=== PATIENT | female | born 1940 | race Two or more races ===

== ENCOUNTER 2022-04-29 10:45 | Emergency (ER) | payer BC, OTHER ==
[~2022-04-29] VITALS: Ht 147.3 cm; Wt 60.0 kg
[2022-04-29 11:25] LABS: Basophils # (auto) 0 10 ^3/uL (0-0.2); Basophils % (auto) 0.8 % (0.0-2.0); Eosinophils # (auto) 0.1 10 ^3/uL (0-0.8); Eosinophils % (auto) 1.1 % (0.0-7.0); Hematocrit 42.7 % (36.0-46.0); Hemoglobin 13.8 g/dL (12.2-16.2); Lymphocytes # (auto) 2.2 10 ^3/uL (0.4-5.4); Lymphocytes % (auto) 35.4 % (10.0-50.0); Mean Corpuscular Hemoglobin 29.3 pg (28.0-32.0); Mean Corpuscular Hgb Conc. 32.3 g/dL (32.0-36.0); Mean Corpuscular Volume 90.9 fL (80.0-100.0); Monocytes # (auto) 0.5 10 ^3/uL (0-1.3); Monocytes % (auto) 8.1 % (0.0-12.0); Neutrophils # (auto) 3.4 10 ^3/uL (1.6-8.6); Neutrophils % (auto) 54.6 % (37.0-80.0); White Blood Cell 6.3 10^3/uL (4.4-10.8)
[2022-04-29 11:42] LABS: INR 1.06 (0.9-1.15); Partial Thromboplastin Time 27.1 sec (24.6-33.4)
[2022-04-29 11:52] LABS: Albumin 3.6 g/dL (3.4-5.0); Calcium 9.2 mg/dL (8.5-10.1)
[2022-04-29 11:56] LABS: BUN/Creatinine Ratio 7.7; Bilirubin, Total 0.5 mg/dL (0.2-1.0); Total Protein 6.8 g/dL (6.4-8.2)
[2022-04-29] MEDS ORDERED: PANTOPRAZOLE 40 MG/10 ML VIAL INJ IV ONE (13:30)
[2022-04-29 14:20] LABS: Urine Bacteria NONE SEEN /hpf (None Seen); Urine Blood Negative /uL (Negative); Urine Specific Gravity 1.003 (1.001-1.035); Urine WBC 1 /hpf (0 - 5)
[2022-04-29 15:00] VITALS: BP 129/54
[2022-04-29] MEDS ORDERED: PANT40TA2 PO (15:23)
[2022-04-29] MEDS ORDERED: PANTOPRAZOLE 40 MG TAB PO SCH (22:00)
== END 2022-04-29 15:48 | disposition home or self-care (01) ==
LOC: ER 10:45
DX: K29.70 Gastritis, unspecified, without bleeding (principal); I10 Essential (primary) hypertension; Z20.822 Contact with and (suspected) exposure to COVID-19
CPT/HCPCS: 36415; 71045; 74176; 80053; 81001; 83880; 84484; 85025; 85610; 85730; 87426; 96374; 99285; C9113

== ENCOUNTER 2022-05-17 07:19 | Emergency (ER) | payer OTHER ==
[~2022-05-17] VITALS: Ht 147.3 cm; Wt 55.0 kg
[~2022-05-17 07:19] MED LIST: PANT40TA2 PO
[2022-05-17] MEDS ORDERED: DONNATAL 5ml ORAL Elix (BELLADONNA ALK-PHENOBARB) PO ONE (07:45)
[2022-05-17] MEDS ORDERED: LIDOCAINE VISCOUS 2% 15ML UD PO ONE (07:45)
[2022-05-17] MEDS ORDERED: ALUM & MAG HYDROX-SIMETH LIQ(MAALOX) 30 ML PO ONE (07:45)
[2022-05-17] MEDS ORDERED: PANT40TA2 PO (07:57)
[2022-05-17 08:00] LABS: Basophils # (auto) 0 10 ^3/uL (0-0.2); Basophils % (auto) 0.5 % (0.0-2.0); Eosinophils # (auto) 0.1 10 ^3/uL (0-0.8); Eosinophils % (auto) 1.8 % (0.0-7.0); Hematocrit 41.5 % (36.0-46.0); Hemoglobin 13.6 g/dL (12.2-16.2); Lymphocytes # (auto) 2.4 10 ^3/uL (0.4-5.4); Lymphocytes % (auto) 32.9 % (10.0-50.0); Mean Corpuscular Hemoglobin 29.6 pg (28.0-32.0); Mean Corpuscular Hgb Conc. 32.9 g/dL (32.0-36.0); Monocytes # (auto) 0.5 10 ^3/uL (0-1.3); Monocytes % (auto) 7.1 % (0.0-12.0); Neutrophils # (auto) 4.2 10 ^3/uL (1.6-8.6); Neutrophils % (auto) 57.7 % (37.0-80.0); Nucleated Red Blood Cells % 0.1 %; Red Cell Distribution Width 14.8 % (11.8-14.3); White Blood Cell 7.2 10^3/uL (4.4-10.8)
[2022-05-17 08:17] LABS: Albumin 3.6 g/dL (3.4-5.0); Potassium 4.1 mmol/L (3.5-5.1)
[2022-05-17 08:20] LABS: BUN/Creatinine Ratio 11.8; Bilirubin, Total 0.5 mg/dL (0.2-1.0); Total Protein 6.7 g/dL (6.4-8.2)
[2022-05-17 08:46] VITALS: BP 135/52
[2022-05-17 12:12] LABS: Urine Bacteria NONE SEEN /hpf (None Seen); Urine Blood Negative /uL (Negative); Urine Mucus FEW (None Seen); Urine Specific Gravity 1.015 (1.001-1.035); Urine WBC 2 /hpf (0 - 5)
== END 2022-05-17 11:33 | disposition home or self-care (01) ==
LOC: ER 07:19
DX: K29.70 Gastritis, unspecified, without bleeding (principal); I10 Essential (primary) hypertension; Z79.899 Other long term (current) drug therapy
CPT/HCPCS: 36415; 80053; 81001; 83690; 84484; 85025; 93005

== ENCOUNTER 2024-03-02 15:34 | Emergency (ER) | payer OTHER ==
[~2024-03-02] VITALS: Ht 149.9 cm; Wt 51.0 kg
[2024-03-02 16:08] LABS: Basophils # (auto) 0.1 10 ^3/uL (0-0.2); Basophils % (auto) 0.8 % (0.0-2.0); Eosinophils # (auto) 0.1 10 ^3/uL (0-0.8); Eosinophils % (auto) 1.2 % (0.0-7.0); Hematocrit 43.8 % (36.0-46.0); Hemoglobin 14.7 g/dL (12.2-16.2); Lymphocytes # (auto) 2.6 10 ^3/uL (0.4-5.4); Lymphocytes % (auto) 37.2 % (10.0-50.0); Mean Corpuscular Hemoglobin 31.9 pg (28.0-32.0); Mean Corpuscular Hgb Conc. 33.5 g/dL (32.0-36.0); Monocytes # (auto) 0.7 10 ^3/uL (0-1.3); Monocytes % (auto) 9.4 % (0.0-12.0); Neutrophils # (auto) 3.6 10 ^3/uL (1.6-8.6); Neutrophils % (auto) 51.4 % (37.0-80.0); Nucleated Red Blood Cells % 0.1 %; Red Blood Cells 4.61 10^6/uL (4.0-5.20); Red Cell Distribution Width 14.5 % (11.8-14.3); White Blood Cell 6.9 10^3/uL (4.4-10.8)
[2024-03-02 16:30] LABS: Alanine Aminotransferase 14 U/L (7-40); Albumin 4.3 g/dL (3.2-4.8); Alkaline Phosphatase 110 U/L (46-116); Anion Gap 8 (5-15); Aspartate Aminotransferase 16 U/L (13-40); BUN/Creatinine Ratio 12.2 (10.0-20.0); Bilirubin, Total 0.6 mg/dL (0.2-1.0); Blood Urea Nitrogen 12 mg/dL (9-23); Calcium 9.7 mg/dL (8.7-10.4); Carbon Dioxide 26 mmol/L (20-30); Chloride 106 mmol/L (98-107); Glucose 111 mg/dL (74-106); Potassium 4.4 mmol/L (3.5-5.1); Sodium 140 mmol/L (136-145); Total Protein 6.6 g/dL (5.7-8.2)
[2024-03-02 18:24] VITALS: BP 15/67; PULSE 61; RESP 14; TEMP 97.9; O2SAT 97
== END 2024-03-02 18:28 | disposition home or self-care (01) ==
LOC: ER 15:34
DX: I10 Essential (primary) hypertension (principal); Z00.00 Encounter for general adult medical examination without abnormal findings
CPT/HCPCS: 36415; 80053; 84484; 85025; 93005

== ENCOUNTER 2024-03-27 07:45 | Inpatient (IN) | payer OTHER ==
[~2024-03-27] VITALS: Ht 147.3 cm; Wt 51.3 kg
[2024-03-27 09:01] LABS: Basophils # (auto) 0 10 ^3/uL (0-0.2); Basophils % (auto) 0.5 % (0.0-2.0); Eosinophils # (auto) 0.1 10 ^3/uL (0-0.8); Eosinophils % (auto) 1.1 % (0.0-7.0); Hematocrit 43.5 % (36.0-46.0); Hemoglobin 14.8 g/dL (12.2-16.2); Lymphocytes # (auto) 2.5 10 ^3/uL (0.4-5.4); Mean Corpuscular Hemoglobin 32.5 pg (28.0-32.0); Mean Corpuscular Hgb Conc. 34.1 g/dL (32.0-36.0); Mean Corpuscular Volume 95.2 fL (80.0-100.0); Monocytes # (auto) 0.7 10 ^3/uL (0-1.3); Monocytes % (auto) 7.8 % (0.0-12.0); Neutrophils # (auto) 5.1 10 ^3/uL (1.6-8.6); Neutrophils % (auto) 60.6 % (37.0-80.0); Platelet Count (auto) 245 10^3/uL (140-450); Red Blood Cells 4.57 10^6/uL (4.0-5.20); Red Cell Distribution Width 14.6 % (11.8-14.3); White Blood Cell 8.4 10^3/uL (4.4-10.8)
[2024-03-27 09:15] LABS: Alanine Aminotransferase 16 U/L (7-40); Albumin 4.3 g/dL (3.2-4.8); Alkaline Phosphatase 111 U/L (46-116); Anion Gap 7 (5-15); Aspartate Aminotransferase 18 U/L (13-40); BUN/Creatinine Ratio 9.8 (10.0-20.0); Blood Alcohol < 3.0 mg/dL (<10); Blood Urea Nitrogen 11 mg/dL (9-23); Calcium 10.1 mg/dL (8.7-10.4); Carbon Dioxide 27 mmol/L (20-30); Chloride 107 mmol/L (98-107); Glucose 110 mg/dL (74-106); Potassium 4.3 mmol/L (3.5-5.1); Sodium 141 mmol/L (136-145)
[2024-03-27 09:16] LABS: Bilirubin, Total 0.8 mg/dL (0.2-1.0); Total Protein 6.9 g/dL (5.7-8.2)
[2024-03-27 09:53] VITALS: PULSE 57; RESP 16; O2SAT 97
[2024-03-27 10:25] VITALS: PULSE 52; RESP 15; O2SAT 97
[2024-03-27] MEDS: IOHEXOL 350 MG/ML 100ML IJ ONE (15:30)
[2024-03-27 15:47] LABS: Urine Bacteria FEW /hpf (None Seen); Urine Blood Negative /uL (Negative); Urine Clarity Clear (Clear); Urine Color Light-Yellow (Yellow); Urine Protein, UAD Negative (Negative); Urine Urobilinogen Normal (Negative); Urine WBC 11 /hpf (0 - 5)
[2024-03-27] MEDS ORDERED: NITROGLYCERIN 0.4 MG SL TAB SL PRN (16:30)
[2024-03-27] MEDS ORDERED: ONDANSETRON HCL 4 MG/2 ML VIAL IV PRN (16:30)
[2024-03-27] MEDS ORDERED: MORPHINE SULFATE INJ 2 MG/ml SYRG IV PRN ×2 (16:30)
[2024-03-27] MEDS ORDERED: HYDROcodone-ACET 5/325MG TAB PO PRN (16:30)
[2024-03-27] MEDS ORDERED: ACETAMINOPHEN 325 MG TAB PO PRN (16:30)
[2024-03-27] MEDS: SODIUM CHLORIDE 0.9% 1,000 ML IV SCH (17:36)
[2024-03-27 19:30] VITALS: PULSE 68; RESP 18; O2SAT 94
[2024-03-27] MEDS ORDERED: hydrALAZINE HCL 20 MG/ML VL IV PRN (21:45)
[2024-03-27] MEDS: diphenhdrAMINE HCL 50 MG/1 ML VL IV ONE (21:50)
[2024-03-28] MEDS ORDERED: ATOR20TA50 PO (01:15)
[2024-03-28] MEDS ORDERED: LEVO50TA7 PO (01:15)
[2024-03-28] MEDS ORDERED: ASPI-543 PO (01:15)
[2024-03-28] MEDS ORDERED: GABA-1250 PO (01:15)
[2024-03-28 01:20] VITALS: BP 147/66; PULSE 69; RESP 17; TEMP 98.1; O2SAT 94
[2024-03-28 05:00] VITALS: BP 154/55; PULSE 60; RESP 17; TEMP 97.3; O2SAT 97
[2024-03-28 08:00] VITALS: PULSE 60; RESP 17; O2SAT 97
[2024-03-28 09:00] VITALS: BP 168/70; PULSE 65; RESP 17; TEMP 97.9; O2SAT 96
[2024-03-28] MEDS ORDERED: ENOXAPARIN SOD 40 MG/0.4 ML SYRINGE SC SCH (10:00)
[2024-03-28] MEDS: ENOXAPARIN SOD 30 MG/0.3 ML SYRINGE SC SCH (10:01)
[2024-03-28 10:10] VITALS: BP 153/73; PULSE 66
[2024-03-28 13:00] VITALS: BP 149/79; PULSE 71; RESP 18; TEMP 98.5; O2SAT 96
[2024-03-28] MEDS ORDERED: CEPH500C PO (13:41)
[2024-03-28] MEDS ORDERED: TRAZ-227 PO (13:53)
[2024-03-28] MEDS ORDERED: traZODone HCL 50 MG TAB PO SCH (22:00)
== END 2024-03-28 17:27 | disposition home or self-care (01) | DRG 57 ==
LOC: ER 07:45 → TELE 16:32 → TELE-EAST 03-28 00:35
PROVIDERS: ADMIT Internal Medicine; ATTEND Internal Medicine
DX: G30.9 Alzheimer's disease, unspecified (principal); N39.0 Urinary tract infection, site not specified; F02.80 Dementia in other diseases classified elsewhere, unspecified severity, without behavioral disturbance, psychotic disturbance, mood disturbance, and anxiety; R26.81 Unsteadiness on feet; R47.1 Dysarthria and anarthria; E03.9 Hypothyroidism, unspecified; F51.04 Psychophysiologic insomnia; G62.9 Polyneuropathy, unspecified; K21.9 Gastro-esophageal reflux disease without esophagitis; I10 Essential (primary) hypertension; Z86.73 Personal history of transient ischemic attack (TIA), and cerebral infarction without residual deficits
CPT/HCPCS: 36415; 70450; 70496; 70551; 80053; 80320; 81001; 85025; 93005; 96361; 96374; 97163; G0378

== ENCOUNTER 2024-05-30 02:35 | Inpatient (IN) | payer OTHER ==
[~2024-05-30] VITALS: Ht 147.3 cm; Wt 50.6 kg
[2024-05-30] VITALS (7 sets, daily range): BP systolic 112–139; BP diastolic 56–77; PULSE 51–78; RESP 18–21; TEMP 98–98.6; O2SAT 97–99
[~2024-05-30 02:35] MED LIST changes: +ASPI-543 PO; +ATOR20TA50 PO; +CEPH500C PO; +GABA-1250 PO; +LEVO50TA7 PO; +TRAZ-227 PO
[2024-05-30] MEDS ORDERED: ACETAMINOPHEN 325 MG TAB PO PRN (05:45)
[2024-05-30] MEDS ORDERED: ONDANSETRON HCL 4 MG/2 ML VIAL IV PRN (05:45)
[2024-05-30] MEDS: SODIUM CHLORIDE 0.9% 1,000 ML IV SCH (05:45)
--- NOTE | 2024-05-30 06:22 | DVHHP2 ---
Admitting Diagnosis: bradycardia, syncope, ABDI, UTI History of Present Illness History Source: Patient Exam Limitations: No limitations HPI Mrs. Agnieszka Amador is an 83 yo female with a history of hypertension, and thyroid disease who is a direct admit from [facility] as per O insurance request. Patient presented to [facility] ED with a chief complaint of syncope episode while sitting down in a chair at [employer] yesterday. Patient was found to be in sinus bradycardia rate 49-55 with blood pressure of 92/54. Patient is alert and oriented x4 with no lateralizing symptoms. Patient WBC 10.56, H&H 14.4/42.7, Platelets 237, Na 135, K 3.3, BUN 28/1.21, Lactic acid 3.2, Urinalysis small leukocyte esterase with WBC UA 11/20. Patient reports associated nausea. Patient denies chest pain, dyspnea, palpitations, dizziness, syncope, fevers chills, c spine, thoracic or lumbar tenderness. Patient reports she has had a cough for a couple days with congestion. Patient reports she was seen here recently and had a normal MRI brain. Patient admitted for further evaluation. Home Meds Active Scripts Trazodone Hcl (Trazodone Hcl) 50 Mg Tab, 25 MG PO HSPRN PRN, #14 TAB Prov:GALEN ESTRADA MD 03/28/24 Cephalexin Monohydrate (Cephalexin) 500 Mg Cap, 1 CAP PO TID for 3 Days, #9 CAP Prov:GALEN ESTRADA MD 03/28/24 Pantoprazole Sodium Sesquihydr (Protonix) 40 Mg Tab, 40 MG PO DAILY for 10 Days, #10 TAB Prov:ABIGAIL MENDEZ MD 05/17/22 Pantoprazole Sodium Sesquihydr (Protonix) 40 Mg Tab, 40 MG PO DAILY for 10 Days, #10 TAB Prov:ABIGAIL MENDEZ MD 04/29/22 Reported Medications Levothyroxine Sodium (Levothyroxine Sodium) 50 Mcg Tab, 50 MCG PO QAM for 30 Days, MCG 03/28/24 Atorvastatin Calcium (ATORVASTATIN CALCIUM) 20 Mg Tab, 1 TAB PO DAILY, #30 TAB 5 Refills 03/28/24 Gabapentin (Gabapentin) 300 Mg Cap, 300 MG PO BID for 30 Days, MG 03/28/24 Aspirin (Aspir-Low) 81 Mg Tab, 81 MG PO DAILY for 30 Days, MG 03/28/24 Past Medical History Cardiac: HTN Pulmonary: No pertinent Hx Central Nervous System: No pertinent Hx GI: No pertinent Hx Hemotology/Oncology: No pertinent Hx Hepatobiliary: No pertinent Hx Psychiatric: No pertinent Hx Musculoskeletal: No pertinent Hx Rheumotologic: No pertinent Hx Infectious Disease: No peritnent Hx ENT: No pertinent Hx Renal/: No pertinent Hx Endocrine: Other (thyroid disease) Dermatology: No pertinent Hx Patient Family History: FH: cancer G8 BROTHER Hypertension 19 CHILD 19 CHILD 19 CHILD Smoker: No Hx (Negative) Alocohol: None Drugs: None Lives with: With family Domestic Violence: Neg Review of Systems Constitutional: No symptom reported Ears, Nose, & Throat: No symptom reported Eyes: No symptom reported Pulmonary/Respiratory: No symptom reported Cardiovascular: No symptom reported Gastrointestinal: No symptom reported Genitourinary: No symptom reported Musculoskeletal: No symptom reported Skin: No symptom reported Psychiatric: No symptom reported Endocrine: No symptom reported Hemotologic/Lymphatic: No symptom reported H&P Exam General Appeara: Well developed, Well nourished, Normal Appearance Head Exam: Normal inspection Neck Exam: Normal inspection, Non-tender, Normal alignment Eye Exam: bilateral eye Normal inspection, bilateral eye PERRL, bilateral eye EOMI Ear Exam: bilateral ear Auricle normal, bilateral ear Canal normal Nasal Exam: Normal inspection Mouth: Normal Inspection Pulmonary/Respiratory: Normal inspection, Normal breath sounds, Chest non- tender, Lungs clear Cardiovascular/Chest: Normal inspection, Regular rate, Normal Rhythm Peripheral Pulses: 2+ dorsalis pedis (R), 2+ dorsalis pedis (L), 2+ Radial (R), 2+ Radial (L) Abdominal Exam: Normal bowel sounds, Soft Rectal Exam: Deferred Back Exam: Normal inspection Tendon/ Neuro: Normal sensation, Normal motor function [employer] Exam: Normal hearing, Normal speech, PERRL Motor/Sensory: Normal sensory function, Normal motor function Neuro/Mental St: Alert, Oriented Appearance: Appropriate appearance, Appropriate insight Eye contact/ Speech: Cooperative, Good eye contact, Normal speech Thoughts/Psych: Normal thought pattern Skin Exam: Normal inspection, Normal color, Warm/dry Assessment/Plan Problem List: (1) Symptomatic sinus bradycardia (2) Acute kidney injury (3) Urinary tract infection (4) Lactic acidosis (5) Dizziness (6) Syncope Plan 83 yo female with known history of hypertension, thyroid disease presents with status post syncopal episode with dizziness. Patient was found to have 1. Bradycardia 2. acute kidney injury 3. urinary tract infection 4. lactic acidosis 5. Dizziness 6. syncope episode Patient admitted to telemetry unit Cardiology consultation, 2D echocardiogram Renal ultrasound, IV fluids NS @ 75 ml/hr TSH, T4 levels, lactic level, urine culture IV antibiotic Ceftriaxone Fall Precautions Discussed all above with patient who verbalizes agreement and understanding of care plan. All questions were answered. Plan discussed with: Patient, Other Code Visit Code Visit Total Time (mins): 45 Additional Comments Additional Comments Additional Comments Patient is seen and evaluated. Patient's chart is reviewed and discussed with the nurse practitioner. I agree with the nurse practitioner's evaluation, documentation, assessment and care plan as outlined. JAMILA MAYORGA May 30, 2024 06:22 LILLI CLARK MD May 30, 2024 14:27
[2024-05-30 07:35] LABS: Basophils # (auto) 0 10 ^3/uL (0-0.2); Basophils % (auto) 0.2 % (0.0-2.0); Eosinophils # (auto) 0 10 ^3/uL (0-0.8); Eosinophils % (auto) 0.2 % (0.0-7.0); Hematocrit 41.4 % (36.0-46.0); Hemoglobin 13.8 g/dL (12.2-16.2); Lymphocytes # (auto) 1.7 10 ^3/uL (0.4-5.4); Lymphocytes % (auto) 20.1 % (10.0-50.0); Mean Corpuscular Hemoglobin 31.2 pg (28.0-32.0); Mean Corpuscular Hgb Conc. 33.4 g/dL (32.0-36.0); Mean Corpuscular Volume 93.3 fL (80.0-100.0); Monocytes # (auto) 0.5 10 ^3/uL (0-1.3); Monocytes % (auto) 6.3 % (0.0-12.0); Neutrophils # (auto) 6.3 10 ^3/uL (1.6-8.6); Neutrophils % (auto) 73.2 % (37.0-80.0); Platelet Count (auto) 232 10^3/uL (140-450); Red Blood Cells 4.44 10^6/uL (4.0-5.20); Red Cell Distribution Width 14.3 % (11.8-14.3); White Blood Cell 8.6 10^3/uL (4.4-10.8)
[2024-05-30 07:38] LABS: Anion Gap 9 (5-15); Carbon Dioxide 23 mmol/L (20-31); Chloride 106 mmol/L (98-107); Potassium 3.7 mmol/L (3.5-5.1); Sodium 138 mmol/L (136-145)
[2024-05-30 07:39] LABS: Calcium 9.5 mg/dL (8.7-10.4)
[2024-05-30 07:44] LABS: BUN/Creatinine Ratio 16.1 (10.0-20.0); Blood Urea Nitrogen 14 mg/dL (9-23); Glucose 111 mg/dL (74-106)
--- NOTE | 2024-05-30 08:05 | DVH ---
RENAL ULTRASOUND CLINICAL HISTORY: mari TECHNIQUE: Multiple ultrasound images of the kidneys and bladder were obtained. COMPARISON: None FINDINGS: The right kidney measures 9.5 cm in length. The left kidney measures 8.7 cm. The kidneys demonstrate appropriate echotexture without evidence of a discrete renal lesion, nephrolithiasis or hydronephrosi s. The bladder is contracted and poorly filled limiting evaluation. IMPRESSION: 1. Unremarkable sonographic appearance of the kidneys. 2. Limited evaluation of the contracted poorly filled bladder. HS:Y
[2024-05-30] MEDS: FAMOTIDINE 20 MG TAB PO SCH (09:07)
[2024-05-30] MEDS: cefTRIAXone 1GM/50ML D5W 50 ML IV SCH (09:07)
[2024-05-30 15:02] LABS: Urine Bacteria None Seen /hpf (None Seen)
[2024-05-30 15:10] LABS: Urine Blood Negative /uL (Negative); Urine Clarity Clear (Clear); Urine Color Light-Yellow (Yellow); Urine Protein, UAD Negative (Negative); Urine Specific Gravity 1.012 (1.001-1.035); Urine Urobilinogen Normal (Negative); Urine WBC 1 /hpf (0 - 5); Urine pH 6.5 (5.0-9.0)
--- NOTE | 2024-05-30 16:00 | DVHSR ---
APPROVED REPORT EXAM: LIMITED Two-dimensional and M-mode echocardiogram. Blood Pressure: 114/66 mmHg INDICATION Bradycardia RISK FACTORS Height: 4' 10", Weight: 122 DIMENSIONS LVDd3.8 (3.8-5.7cm)LA (2D)3.7 (1.9-4.0cm)Aortic Root2.8 (2.0-3.7cm) LVDs2.7 (2.5-4.0cm)LA (MM) (1.9-4.0cm)Aortic Cusp Exc1.4 (1.5-2.0cm) EF (%) 56.0 (55-70%)Rt. Atrium (1.9-4.0cm)Asc. Aorta cm IVSd0.9 (0.7-1.1cm)RV (D) (1.8-2.4cm) PWd0.8 (0.7-1.1cm) Mitral Valve MitralMitral Stenosis E wave0.90m/sMV Mean GR.mmHg A wave1.00m/sMV Peak GR.mmHg E/A ratio0.92D MVAcm2 Aortic Valve Aortic ValveAortic Stenosis V11.10m/Rony Mean GR.4mmHg V21.40m/Rony Peak GR.8mmHg LVOT Diameter2.0 (1.8-2.4cm)Doppler AVA2.47cm2 Tricuspid Valve TR Velocity2.20m/s [id number] Conclusion Technically difficult study. Difficult acoustic windows. Limited views. Apical views obtained for the most part. Sinus rhythm. Chamber dimension evaluation shows left atrial enlargement with mild concentric LVH. Valves appear to be structurally normal. Left ventricular function is preserved. EF of about 55% with normal RV function. Dopplers unremarkable. No pericardial effusion masses or vegetations.
--- NOTE | 2024-05-30 19:07 | DVHINCON2 ---
Date Seen: May 30, [address] Estrada. Reason for Consultation Syncope History of Present Illness A 71-year-old lady with a history of generalized body pain and numbness. Has had a syncopal event. She was in [employer] and was found by her daughter dazed and leaning back against the bench. In about a minute she became arousable. She regained consciousness but could not remember. Past medical history significant for mild dementia.Patient states that she felt warmth and things began to black out prior to her passing out. No loss of bladder or bowel Function. Past Medical History Hypertension. Dementia. Status post appendectomy and . No history of previous myocardial infarction. She is a . She has children and grandchildren. Family states that she has been progressively declining mentally. Past Surgical History History of appendectomy and . Family History: FH: cancer G8 BROTHER Hypertension 19 CHILD 19 CHILD 19 CHILD Allergies: Coded Allergies: NO KNOWN ALLERGIES (Unverified , 04/29/22) Home Meds Active Scripts Trazodone Hcl (Trazodone Hcl) 50 Mg Tab, 25 MG PO HSPRN PRN, #14 TAB Prov:GALEN ESTRADA MD 03/28/24 Cephalexin Monohydrate (Cephalexin) 500 Mg Cap, 1 CAP PO TID for 3 Days, #9 CAP Prov:GALEN ESTRADA MD 03/28/24 Pantoprazole Sodium Sesquihydr (Protonix) 40 Mg Tab, 40 MG PO DAILY for 10 Days, #10 TAB Prov:ABIGAIL MENDEZ MD 05/17/22 Pantoprazole Sodium Sesquihydr (Protonix) 40 Mg Tab, 40 MG PO DAILY for 10 Days, #10 TAB Prov:ABIGAIL MENDEZ MD 04/29/22 Reported Medications Levothyroxine Sodium (Levothyroxine Sodium) 50 Mcg Tab, 50 MCG PO QAM for 30 Days, MCG 03/28/24 Atorvastatin Calcium (ATORVASTATIN CALCIUM) 20 Mg Tab, 1 TAB PO DAILY, #30 TAB 5 Refills 03/28/24 Gabapentin (Gabapentin) 300 Mg Cap, 300 MG PO BID for 30 Days, MG 03/28/24 Aspirin (Aspir-Low) 81 Mg Tab, 81 MG PO DAILY for 30 Days, MG 03/28/24 Current Medications Current Medications Medications (Trade) Dose Ordered Sig/Nell Route PRN Reason Start Time Stop Time Status Last Admin Sodium Chloride 1,000 ml @ 75 mls/hr [id number] IV 05/30/24 05:45 05/30/24 06:45 Ondansetron HCl (Zofran) 4 mg Q6HPRN PRN IV NAUSEA / VOMITING 05/30/24 05:45 Ceftriaxone Sodium 50 ml @ 100 mls/hr DAILY IV 05/30/24 10:00 05/30/24 09:07 Acetaminophen (Tylenol Tablet) 650 mg Q6HPRN PRN PO TEMP GREATER THAN 100.4 05/30/24 05:45 Famotidine (Pepcid Tablet) 20 mg DAILY PO 05/30/24 10:00 05/30/24 09:07 Review of Systems No history of constitutional symptoms fevers chills or weight loss. Cardiac and respiratory as noted above. Neurologically as noted above. GI integumentary allergy immunology lymphatic endocrine psychiatrically otherwise negative with the exception of that noted above. Vital Signs Vital Signs Date Time Temp Pulse Resp B/P (MAP) Pulse Ox O2 Delivery O2 Flow Rate FiO2 05/30/24 17:00 98.2 70 19 113/59 (77) 97 98.2 05/30/24 08:00 Room Air* 0 21 Physical Exam Alert and oriented no acute distress at this time. HEENT examination is otherwise unremarkable. Orally well hydrated. Trachea central neck supple thyroid is not palpable with no jugular distention no bruits. Lungs are good air entry no rales or rhonchi. Heart exam reveals regular S1-S2 soft S4. abdominal examination is unremarkable. Extremities reveal adequate perfusion without clubbing cyanosis no edema. Neurologically intact. Integumentary is otherwise within normal limits. Labs/Diagnostic Data Labs Test 05/30/24 15:00 05/30/24 13:04 05/30/24 09:25 05/30/24 06:47 Range/Units Urine Color Light-yellow Yellow Urine Clarity Clear Clear Urine pH 6.5 5.0-9.0 Urine Specific [place] 1.012 1.001-1.035 Urine Protein Negative Negative Urine Ketones Negative Negative Urine Blood Negative Negative /uL Urine Nitrite Negative Negative Urine Bilirubin Negative Negative Urine Urobilinogen Normal Negative mg/dL Urine Leukocyte Esterase Negative Negative /uL Urine RBC 1 0 - 4 /hpf Urine WBC 1 0 - 5 /hpf Urine Squamous Epithelial Cells Few <5 /hpf Urine Bacteria None seen None Seen /hpf Urine Glucose Normal Normal mg/dL Troponin I High Sensitivity 6 </=34 ng/L Lactic Acid Level 1.5 0.4-2.0 mmol/L White Blood Count 8.6 4.4-10.8 10^3/uL Red Blood Count 4.44 4.0-5.20 10^6/uL Hemoglobin 13.8 12.2-16.2 g/dL Hematocrit 41.4 36.0-46.0 % Mean Corpuscular Volume 93.3 80.0-100.0 fL Mean Corpuscular Hemoglobin 31.2 28.0-32.0 pg Mean Corpuscular Hemoglobin Concent 33.4 32.0-36.0 g/dL Red Cell Distribution Width 14.3 11.8-14.3 % Platelet Count 232 140-450 10^3/uL Mean Platelet Volume 8.5 6.9-10.8 fL Neutrophils (%) (Auto) 73.2 37.0-80.0 % Lymphocytes (%) (Auto) 20.1 10.0-50.0 % Monocytes (%) (Auto) 6.3 0.0-12.0 % Eosinophils (%) (Auto) 0.2 0.0-7.0 % Basophils (%) (Auto) 0.2 0.0-2.0 % Neutrophils # (Auto) 6.3 1.6-8.6 10 ^3/uL Lymphocytes # (Auto) 1.7 0.4-5.4 10 ^3/uL Monocytes # (Auto) 0.5 0-1.3 10 ^3/uL Eosinophils # (Auto) 0 0-0.8 10 ^3/uL Basophils # (Auto) 0 0-0.2 10 ^3/uL Nucleated Red Blood Cells 0.0 % Sodium Level 138 136-145 mmol/L Potassium Level 3.7 3.5-5.1 mmol/L Chloride Level 106 98-107 mmol/L Carbon Dioxide Level 23 20-31 mmol/L Anion Gap 9 5-15 Blood Urea Nitrogen 14 9-23 mg/dL Creatinine 0.87 0.550-1.02 mg/dL Glomerular Filtration Rate Calc 66 >90 mL/min BUN/Creatinine Ratio 16.1 10.0-20.0 Serum Glucose 111 H 74-106 mg/dL Calcium Level 9.5 8.7-10.4 mg/dL Thyroid Stimulating Hormone (TSH) 0.47 L 0.55-4.78 uIU/mL Assessment Probable vasovagal event. Associated dementia. Plan/Recommendation Echocardiogram reviewed showing normal left ventricular function. We will rule out coronary artery disease. A stress test will be obtained we will monitor rhythm strips. Plan discussed with: Daughter Date of Service: May 30, 2024 Billing Provider: MICHELLE YUSUF Sr., MD Cardiology Common Codes: 84244-DPOEMMZ INP/OBS CARE (High) Cardiology Consultation Codes: 83088-[id number] CONSULT <60MIN MICHELLE YUSUF Sr., MD May 30, 2024 19:06
[2024-05-30] MEDS: ZOLPIDEM TARTRATE 5 MG TAB PO PRN (21:46)
[2024-05-31] VITALS (7 sets, daily range): BP systolic 116–157; BP diastolic 45–68; PULSE 60–73; RESP 16–20; TEMP 97.8–98.3; O2SAT 97–98
[2024-05-31] MEDS: ADENOSINE 43 MG in GIVE UN-DILUTED 0 ML IV ONE (11:54)
--- NOTE | 2024-05-31 12:09 | DVHPN2 ---
Progress Note - Dictate Date Seen: May 31, 2024 Medical Necessity Reason Pt with a Central, PICC or Fol: No Subjective Clinically stable. Ambulating well. Family is at bedside. Evaluated by Cardiology undergoing Cardiolite stress test. vital signs Vital Sign Date Time Temp Pulse Resp B/P (MAP) Pulse Ox O2 Delivery O2 Flow Rate FiO2 05/31/24 05:00 97.8 60 19 116/45 (68) 97 97.8 05/30/24 20:00 Room Air* 0 21 Total Intake and Output 05/30/24 05/30/24 05/31/24 15:00 23:00 07:00 Intake Total 50 ml 1425 ml 300 ml Balance 50 ml 1425 ml 300 ml medications Current Medications Medications Dose Ordered Sig/Nell Route Start Time Stop Time Status Last Admin Dose Admin Sodium Chloride 1,000 ml @ 75 mls/hr [id number] IV 05/30/24 05:45 05/30/24 06:45 75 MLS/HR Ondansetron HCl 4 mg Q6HPRN PRN IV 05/30/24 05:45 Ceftriaxone Sodium 50 ml @ 100 mls/hr DAILY IV 05/30/24 10:00 05/31/24 09:41 100 MLS/HR Acetaminophen 650 mg Q6HPRN PRN PO 05/30/24 05:45 Famotidine 20 mg DAILY PO 05/30/24 10:00 05/31/24 09:44 20 MG Zolpidem Tartrate 5 mg HSPRN PRN PO 05/30/24 19:15 05/30/24 21:46 5 MG objective Alert awake oriented x3. Family at bedside. Comfortable in bed. HEENT neck supple no JVD. Heart regular rate and rhythm S1 and S2. Lungs without rales wheezes. Abdomen soft nontender positive bowel sounds. Extremities no edema positive pulses. No focal neurological deficits. laboratory and microbiology Laboratory Tests 05/30/24 06:47 Test 05/30/24 06:47 Range/Units Serum Glucose 111 H 74-106 mg/dL Assessment/Plan Patient orthostatic vitals are normal. Proceed with Cardiolite stress test and if workup is normal then she can be discharged home. Discussed with them. Meantime continue present management. Problems(with codes): (1) Acute kidney injury (2) Dizziness Dietary Evaluation Review Comments: appropriate weight per height. appetite is stimulated as we discussed menu items on her cardiac diet. Monitor PO intake to meet 75% of her needs. Expected Outcomes/Goals: Maintain weight. Plan discussed with: Patient, Other LILLI CLARK MD May 31, 2024 12:09
[2024-05-31] MEDS ORDERED: DONE1TAB88 PO (15:21)
[2024-05-31] MEDS ORDERED: LISI-287 PO (15:21)
--- NOTE | 2024-05-31 15:49 | DVHSR ---
APPROVED REPORT Exam: Nuclear Stress Test BMI: 0 Stress Test Details HR Max Heart Rate (APMHR): 138.786807 bpm Target HR (85% APMHR): 117.607078 bpm BP ECG Stress ECG Conclusion Resting ECG shows normal sinus rhythm. No dynamic EKG changes was noted to suggest ischemia. Resting images shows near homogeneous uptake of radioactive tracer throughout the myocardium without evidence of myocardial infarction. Stress images shows near homogeneous uptake of radioactive tracer throughout the myocardium without e vidence of myocardial ischemia well-preserved left ventricular systolic function at 77%. Impression: Negative stress test for ischemia, low risk study. NM EXAM: Myocardial Perfusion REST/STRESS Imaging Protocol: Rest Tc-99m/Stress Tc-99m 1 day Resting Data Rest SPECT myocardial perfusion imaging was performed in supine position 60 minutes following the int ravenous injection of 10.3 mCi of Tc-99m Sestamibi. Time of rest injection: 1017 Time of rest imagin Administration Route: IV Administration Site: Right Arm Pharmacologic Stress Pharmacologic stress test was performed by injecting Adenosine mg IV push followed by the intravenou s injection of 25.9 mCi of Tc-99m Sestamibi. Time of stress injection: 1158 Time of stress imagin Administration Route: IV Administration Site: Right Arm Gated Stress SPECT was performed 60 minutes after stress injection. The images were gated to evaluate regional wall motion and calculate left ventricular ejection fracti on. Stress only was performed in the Supine position. Nuclear Conclusion ECG Findings: negative for ischemia Clinical Findings: negative for ischemia Nuclear Findings: negative for ischemia Exercise Capacity: not assessed Left Ventricular Function: normal Risk Study: low Resting ECG shows normal sinus rhythm. No dynamic EKG changes was noted to suggest ischemia. Resting images shows near homogeneous uptake of radioactive tracer throughout the myocardium without evidence of myocardial infarction. Stress images shows near homogeneous uptake of radioactive tracer throughout the myocardium without e vidence of myocardial ischemia well-preserved left ventricular systolic function at 77%. Impression: Negative stress test for ischemia, low risk study.
[2024-06-01 01:00] VITALS: BP 130/61; PULSE 68; RESP 20; TEMP 98; O2SAT 96
[2024-06-01 05:00] VITALS: BP 122/51; PULSE 63; RESP 18; TEMP 98.2; O2SAT 98; O2SAT 99
[2024-06-01 08:00] VITALS: PULSE 56; PULSE 77; RESP 18; O2SAT 97
[2024-06-01 08:30] VITALS: BP 156/72; PULSE 69; RESP 18; TEMP 97.9; O2SAT 100
--- NOTE | 2024-06-01 13:55 | DVHDS2 ---
Discharge Summary Date of Admission May 30, 2024 at 05:32 Date of Discharge: Jun 01, 2024 Labs/Diagnostic Data: Laboratory Results Test 05/30/24 18:46 05/30/24 15:00 05/30/24 09:25 05/30/24 06:47 Troponin I High Sensitivity 9 ng/L (</=34) Urine Color Light-yellow (Yellow) Urine Clarity Clear (Clear) Urine pH 6.5 (5.0-9.0) Urine Specific [place] 1.012 (1.001-1.035) Urine Protein Negative (Negative) Urine Ketones Negative (Negative) Urine Blood Negative /uL (Negative) Urine Nitrite Negative (Negative) Urine Bilirubin Negative (Negative) Urine Urobilinogen Normal mg/dL (Negative) Urine Leukocyte Esterase Negative /uL (Negative) Urine RBC 1 /hpf (0 - 4) Urine WBC 1 /hpf (0 - 5) Urine Squamous Epithelial Cells Few /hpf (<5) Urine Bacteria None seen /hpf (None Seen) Urine Glucose Normal mg/dL (Normal) Lactic Acid Level 1.5 mmol/L (0.4-2.0) White Blood Count 8.6 10^3/uL (4.4-10.8) Red Blood Count 4.44 10^6/uL (4.0-5.20) Hemoglobin 13.8 g/dL (12.2-16.2) Hematocrit 41.4 % (36.0-46.0) Mean Corpuscular Volume 93.3 fL (80.0-100.0) Mean Corpuscular Hemoglobin 31.2 pg (28.0-32.0) Mean Corpuscular Hemoglobin Concent 33.4 g/dL (32.0-36.0) Red Cell Distribution Width 14.3 % (11.8-14.3) Platelet Count 232 10^3/uL (140-450) Mean Platelet Volume 8.5 fL (6.9-10.8) Neutrophils (%) (Auto) 73.2 % (37.0-80.0) Lymphocytes (%) (Auto) 20.1 % (10.0-50.0) Monocytes (%) (Auto) 6.3 % (0.0-12.0) Eosinophils (%) (Auto) 0.2 % (0.0-7.0) Basophils (%) (Auto) 0.2 % (0.0-2.0) Neutrophils # (Auto) 6.3 10 ^3/uL (1.6-8.6) Lymphocytes # (Auto) 1.7 10 ^3/uL (0.4-5.4) Monocytes # (Auto) 0.5 10 ^3/uL (0-1.3) Eosinophils # (Auto) 0 10 ^3/uL (0-0.8) Basophils # (Auto) 0 10 ^3/uL (0-0.2) Nucleated Red Blood Cells 0.0 % Sodium Level 138 mmol/L (136-145) Potassium Level 3.7 mmol/L (3.5-5.1) Chloride Level 106 mmol/L (98-107) Carbon Dioxide Level 23 mmol/L (20-31) Anion Gap 9 (5-15) Blood Urea Nitrogen 14 mg/dL (9-23) Creatinine 0.87 mg/dL (0.550-1.02) Glomerular Filtration Rate Calc 66 mL/min (>90) BUN/Creatinine Ratio 16.1 (10.0-20.0) Serum Glucose 111 mg/dL (74-106) Calcium Level 9.5 mg/dL (8.7-10.4) Thyroid Stimulating Hormone (TSH) 0.47 uIU/mL (0.55-4.78) Thyroxine (T4) 9.8 ug/dL (4.5-12.0) Other Laboratory Tests 05/30/24 06:47 Final Diagnosis/Problems List near syncope Discharge Disposition: Home Discharge Instruct/Medications Diet: Consistent carbohydrate, Cardiac 2g Na,low cholest Activity: No Restrictions, As Tolerated Follow Up/Referral: with PCP 2 weeks for blood pressure check Medications: home medications Discharge Statement: "Patient was advised to return to the ER or call 911 if any headaches, dizziness, shortness of breath, chest pain, abdominal pain, bleeding, fevers, or worsening of medical condition. Patient was counseled about treatment plan, medications, possible side effects, patientverbalized understanding. All questions were answered to the best of my ability. This discharge took greater then 30 minutes in planning, reviewing documentation, counseling the patient, and discussing with other team members." ASSESSMENT ASSESSMENT Assessment near syncope LILLI CLARK MD Jun 01, 2024 13:55
== END 2024-06-01 12:37 | disposition home or self-care (01) | DRG 74 ==
LOC: TELE-WESTW 05:32
PROVIDERS: ADMIT Hospitalist; ATTEND Hospitalist
DX: G90.89 Other disorders of autonomic nervous system (principal); N17.9 Acute kidney failure, unspecified; E87.20 Acidosis, unspecified; N39.0 Urinary tract infection, site not specified; I10 Essential (primary) hypertension; R42 Dizziness and giddiness; F03.A0 Unspecified dementia, mild, without behavioral disturbance, psychotic disturbance, mood disturbance, and anxiety; Z82.49 Family history of ischemic heart disease and other diseases of the circulatory system; Z90.49 Acquired absence of other specified parts of digestive tract; R00.1 Bradycardia, unspecified
CPT/HCPCS: 36415; 76775; 78452; 80048; 81001; 83605; 84436; 84443; 84484; 85025; 93017; 93306; 97110; 97116; 97163; G0378; J0153

== ENCOUNTER 2024-11-08 11:44 | Emergency (ER) | payer MEDICARE, OTHER ==
[~2024-11-08] VITALS: Ht 154.9 cm; Wt 49.5 kg
[~2024-11-08 11:44] MED LIST changes: -CEPH500C PO; +DONE1TAB88 PO; +LISI-287 PO; -TRAZ-227 PO
--- NOTE | 2024-11-08 12:48 | ED.PDOC ---
History of Present Illness HPI Comments 84F BIBA w/ no prior Hx associated to the c/c of Syncope. Pt reports on pulling her weeds in her backyard and got hot so she started walking to her patio when she got dizzy and fainted, hitting her head on a brick. PMHx of CVA and HTN. Denies chills, fever, N//'V/D, SOB, CP or no other associated symptoms, m odifiers, recent injuries or sick contacts at this time. Chief Complaint: Syncope Time Seen by MD: 12:10 Primary Care Provider: FABY Reviewed Notes: Nurses Notes, Architect In Training Notes, Medications, Allergies Allergies: Coded Allergies: NO KNOWN ALLERGIES (Unverified , 04/29/22) Home Meds Active Scripts Cephalexin (KEFLEX CAPSULE) 250 Mg Cp, 1 CAP PO QID PRN for 7 Days, #28 CAP Prov:ABIGAIL MENDEZ MD 11/08/24 Pantoprazole Sodium Sesquihydr (Protonix) 40 Mg Tab, 40 MG PO DAILY for 10 Days, #10 TAB Prov:ABIGAIL MENDEZ MD 05/17/22 Pantoprazole Sodium Sesquihydr (Protonix) 40 Mg Tab, 40 MG PO DAILY for 10 Days, #10 TAB Prov:ABIGAIL MENDEZ MD 04/29/22 Reported Medications Donepezil Hydrochloride (DONEPEZIL HCL) 10 Mg Tab, PO 05/31/24 Lisinopril & Hydrochlorothiazi (Lisinopril/Hydrochlorothi) 1 Tab Tab, 1 TAB PO DAILY 05/31/24 Levothyroxine Sodium (Levothyroxine Sodium) 50 Mcg Tab, 50 MCG PO QAM for 30 Days, MCG 03/28/24 Atorvastatin Calcium (ATORVASTATIN CALCIUM) 20 Mg Tab, 1 TAB PO DAILY, #30 TAB 5 Refills 03/28/24 Gabapentin (Gabapentin) 300 Mg Cap, 300 MG PO BID for 30 Days, MG 03/28/24 Aspirin (Aspir-Low) 81 Mg Tab, 81 MG PO DAILY for 30 Days, MG 03/28/24 Information Source: Patient Mode of Arrival: EMS Severity: Moderate Timing: Minutes Duration: Since onset, Minutes Prehospital treatment: [facility] Past Medical History PAST MEDICAL HISTORY: CVA, HTN Surgical History: Denies all surgeries CREATIVE ART THERAPIST History: No Pertinent CREATIVE ART THERAPIST History Family History Family History: Reviewed,noncontributory to illness, Unknown Social History Smoker: Non-Smoker Alcohol: Denies ETOH Use Drugs: Denies Drug Use Lives In: Home Constitutional: denies: chills, diaphoresis, fatigue, fever, malaise, sweats, weakness, others EENTM: denies: blurred vision, double vision, ear bleeding, ear discharge, ear drainage, ear pain, ear ringing, eye pain, eye redness, hearing loss, mouth pain, mouth swelling, nasal discharge, nose bleeding, nose congestion, nose pain, photophobia, tearing, throat pain, throat swelling, voice changes, others Respiratory: denies: cough, hemoptysis, orthopnea, SOB at rest, shortness of breath, SOB with excertion, stridor, wheezing, others Cardiovascular: reports: syncope; denies: chest pain, dizzy spells, diaphoresis, Dyspnea on exertion, edema, irregular heart beat, left arm pain, lightheadedness, palpitations, PND, others Gastrointestinal: denies: abdomen distended, abdominal pain, blood streaked bowels, constipated, diarrhea, dysphagia, difficulty swallowing, hematemesis, melena, nausea, poor appetite, poor fluid intake, rectal bleeding, rectal pain, vomiting, others Genitourinary: denies: abnormal vagina bleeding, burning, dyspareunia, dysuria, flank pain, frequency, hematuria, incontinence, pain, , vagina discharge, urgency, others Neurological: reports: dizziness; denies: fainting, headache, left sided numb ness, left sided weakness, numbness, paresthesia, pre-existing deficit, right sided numbness, right sided weakness, seizure, speech problems, tingling, tremors, weakness, others Musculoskeletal: denies: back pain, gout, joint pain, joint swelling, muscle pain, muscle stiffness, neck pain, others Integumetry: denies: bruises, change in color, change in hair/nails, dryness, laceration, lesions, lumps, rash, wounds, others Allergic/Immunocompromised: denies: Difficulty Healing, Frequent Infections, Hives, Itching, others Hematologic/Lymphatic: denies: anemia, blood clots, easy bleeding, easy bruising, swollen glands, others Endocrine: denies: excessive hunger, excessive sweating, excessive thirst, excessive urination, flushing, intolerance to cold, intolerance to heat, unexplained weight gain, unexplained weight loss, others Psychiatric: denies: anxiety, bipolar disorder, depression, hopeless, panic disorder, schizophrenia, sleepless, suicidal, others All Other Systems: Reviewed and Negative Physical Exam General Appearance: Moderate Distress, Normal HEENT: Normal ENT Inspection, Pharynx Normal, TMs Normal Neck: Full Range of Motion, Non-Tender, Normal, Normal Inspection Respiratory: Chest Non-Tender, Lungs Clear, No Accessory Muscle Use, No Respiratory Distress, Normal Breath Sounds Cardiovascular: No Edema, No JVD, No Murmur, No Gallop, Normal Peripheral Pulses, Regular Rate/Rhythm Breast Exam: Deferred Gastrointestinal: No Organomegaly, Non Tender, No Pulsatile Mass, Normal Bowel Sounds, Soft Genitalia: Deferred Pelvic: Deferred Rectal: Deferred Extremities: No calf tenderness, Normal capillary refill, Normal inspection, Normal range of motion, Non-tender, No pedal edema Musculoskeletal : Apperance: Normal Neurologic: Alert, server support technician II-XII nml as Tested, No Motor Deficits, Normal Affect, Normal Mood, No Sensory Deficits Cerebellar Function: Normal Reflexes: Normal Skin: Bruises (Scalp), Dry, Normal Color, Warm Peripheral Pulses: 3+ Radial (R), 3+ Radial (L) Lymphatic: No Adenopathy Was a procedure done? Was a procedure done?: Yes Sedation Sedation?: No Laceration Repair : Location Left eyebrow Length 3 Anesthetic: Lidocaine Laceration Repair Prep: Saline, Betadine Laceration Repair Wound Comple: epidermis/dermis repair Laceration Repair: Number of sutures (5) Notes Was given Keflex antibiotic EKG EKG : Pulse Rate (adult): 57 [place]: Normal Cardiac Rhythm: NSR Differential Dx Considerations may include: Head injury Electrolyte imbalance X-Ray, Labs, Meds, VS Vital Signs Date Time Temp Pulse Resp B/P (MAP) Pulse Ox O2 Delivery O2 Flow Rate FiO2 11/08/24 14:34 98.5 58 15 135/48 (77) 96 98.5 11/08/24 14:11 57 11/08/24 13:21 97.7 53 14 115/42 (66) 97 97.7 11/08/24 13:21 53 14 97 Room Air 11/08/24 12:00 57 11/08/24 11:51 98.2 85 18 114/72 (86) 98 98.2 Lab Test 11/08/24 13:30 11/08/24 13:10 Range/Units Urine Color Yellow Yellow Urine Clarity Clear Clear Urine pH 6.5 5.0-9.0 Urine Specific [place] 1.019 1.001-1.035 Urine Protein Negative Negative Urine Ketones Trace Negative Urine Blood Negative Negative /uL Urine Nitrite Negative Negative Urine Bilirubin Negative Negative Urine Urobilinogen 3 H Negative mg/dL Urine Leukocyte Esterase Negative Negative /uL Urine RBC 2 0 - 4 /hpf Urine Microscopic WBC < 1 0-5 /HPF Urine Squamous Epithelial Cells Few <5 /hpf Urine Bacteria None seen None Seen /hpf Urine Glucose Normal Normal mg/dL White Blood Count 6.9 4.4-10.8 10^3/uL Red Blood Count 4.57 4.0-5.20 10^6/uL Hemoglobin 14.4 12.2-16.2 g/dL Hematocrit 43.6 36.0-46.0 % Mean Corpuscular Volume 95.5 80.0-100.0 fL Mean Corpuscular Hemoglobin 31.4 28.0-32.0 pg Mean Corpuscular Hemoglobin Concent 32.9 32.0-36.0 g/dL Red Cell Distribution Width 14.0 11.8-14.3 % Platelet Count 255 140-450 10^3/uL Mean Platelet Volume 8.4 6.9-10.8 fL Neutrophils (%) (Auto) 74.3 37.0-80.0 % Lymphocytes (%) (Auto) 18.2 10.0-50.0 % Monocytes (%) (Auto) 7.1 0.0-12.0 % Eosinophils (%) (Auto) 0.1 0.0-7.0 % Basophils (%) (Auto) 0.3 0.0-2.0 % Neutrophils # (Auto) 5.1 1.6-8.6 10 ^3/uL Lymphocytes # (Auto) 1.3 0.4-5.4 10 ^3/uL Monocytes # (Auto) 0.5 0-1.3 10 ^3/uL Eosinophils # (Auto) 0 0-0.8 10 ^3/uL Basophils # (Auto) 0 0-0.2 10 ^3/uL Nucleated Red Blood Cells 0.0 % Sodium Level 137 136-145 mmol/L Potassium Level 4.5 3.5-5.1 mmol/L Chloride Level 101 98-107 mmol/L Carbon Dioxide Level 26 20-31 mmol/L Anion Gap 10 5-15 Blood Urea Nitrogen 17 9-23 mg/dL Creatinine 1.11 H 0.550-1.02 mg/dL Glomerular Filtration Rate Calc 49 >90 mL/min BUN/Creatinine Ratio 15.3 10.0-20.0 Serum Glucose 123 H 74-106 mg/dL Calcium Level 10.7 H 8.7-10.4 mg/dL Troponin I High Sensitivity 3 L </=34 ng/L Patient alert. Head injury. Vitals stable. Answering all questions. Ambulating. States that she is feeling fine. No shortness a breath. No chest pain. Not in distress. CT of the head reviewed does not show any acute changes. No tenderness of the neck. WBC within normal limits. Hemoglobin within normal limits. EKG reviewed does not show any acute changes. Cardiac marker within normal limits. Reviewed her history. Explained to the patient. There is a laceration on the left eyebrow. Sutured. Was given prescription of Keflex antibiotic. Was told to follow up with her primary care physician. Was told to come back if there is any problem. Time of 1ST Reevaluation: 12:40 Reevaluation 1ST: Improved Patient Education/Counseling: Diagnosis, Treatment, Prognosis Family Education/Counseling: No Family Present Departure 1 Departure Time of Disposition: 14:09 Impression: Primary Impression: Head injury Qualified Codes: S09.90XA - Unspecified injury of head, initial encounter Additional Impression: Laceration Disposition: 01 HOME / SELF CARE / HOMELESS Condition: Good e-Prescriptions Cephalexin (KEFLEX CAPSULE) 250 Mg Cp 1 CAP PO QID PRN for 7 Days, #28 CAP Prov: ABIGAIL MENDEZ MD 11/08/24 Discharged With: Self Critical Care Note Critical Care Time?: No Stability Stability form required: No Heart Score Heart Score: Heart Score Response (Comments) Value History Slightly Suspicious 0 EKG Normal 0 Age >65 2 Risk Factors 1 or 2 risk factors 1 Troponin Normal limit 0 Total 3 I personally scribed for ABIGAIL MENDEZ MD ([email or web address]) on 11/08/24 at 12:48. Electronically submitted by Ashok Ward ([email or web address]). ABIGAIL MENDEZ MD Nov 08, 2024 12:48
--- NOTE | 2024-11-08 13:11 | DVH ---
CT HEAD WITHOUT CONTRAST INDICATION: syncope : 84 old Female syncope EXAM DATE: 11/08/2024 12:37 PM COMPARISON: CT STROKE CTH on DOS: 03/27/24, CT HEAD WITHOUT CONTRAST on DOS: 03/27/24 RADIATION DOSE: CTDIvol: 48.66 mGy, DLP: 780.26 mGy*cm PROCEDURE: CT scans of the head were obtained from the vertex to the skull base. Sagittal and coronal reconstructions were provided. All CT scans at this medical facility are performed using dose modulation techniques as appropriate t o a performed exam including the following: Automated exposure control was utilized; adjustment of th e MA and/or KV according to patient size; and use of iterative reconstruction technique. FINDINGS: There is sulcal and ventricular prominence. The brainshows normal morphology and felipe-whi te matter differentiation, without intracranial hemorrhage, extra-axial fluid collection, mass effect or acute large vessel infarct. The ventricles are normal in size. The basal cisterns are patent. The skull and visible facial bones are intact. Right maxillary sinus opacitication. The other paranasal sinuses, mastoid air cells and middle ear cavities are well-aerated. The soft tissues of the scalp ar e unremarkable. IMPRESSION: No acute intracranial abnormality.
[2024-11-08 13:39] LABS: Basophils # (auto) 0 10 ^3/uL (0-0.2); Basophils % (auto) 0.3 % (0.0-2.0); Eosinophils # (auto) 0 10 ^3/uL (0-0.8); Eosinophils % (auto) 0.1 % (0.0-7.0); Hematocrit 43.6 % (36.0-46.0); Hemoglobin 14.4 g/dL (12.2-16.2); Lymphocytes # (auto) 1.3 10 ^3/uL (0.4-5.4); Lymphocytes % (auto) 18.2 % (10.0-50.0); Mean Corpuscular Hemoglobin 31.4 pg (28.0-32.0); Mean Corpuscular Hgb Conc. 32.9 g/dL (32.0-36.0); Mean Corpuscular Volume 95.5 fL (80.0-100.0); Monocytes # (auto) 0.5 10 ^3/uL (0-1.3); Monocytes % (auto) 7.1 % (0.0-12.0); Neutrophils # (auto) 5.1 10 ^3/uL (1.6-8.6); Neutrophils % (auto) 74.3 % (37.0-80.0); Platelet Count (auto) 255 10^3/uL (140-450); Red Blood Cells 4.57 10^6/uL (4.0-5.20); White Blood Cell 6.9 10^3/uL (4.4-10.8)
[2024-11-08 13:42] LABS: Chloride 101 mmol/L (98-107); Potassium 4.5 mmol/L (3.5-5.1); Sodium 137 mmol/L (136-145)
[2024-11-08 13:43] LABS: Anion Gap 10 (5-15); Carbon Dioxide 26 mmol/L (20-31)
[2024-11-08 13:46] LABS: Urine Bacteria None Seen /hpf (None Seen)
[2024-11-08 13:48] LABS: BUN/Creatinine Ratio 15.3 (10.0-20.0); Blood Urea Nitrogen 17 mg/dL (9-23)
[2024-11-08 13:51] LABS: Calcium 10.7 mg/dL (8.7-10.4); Glucose 123 mg/dL (74-106)
[2024-11-08 13:55] LABS: Urine Blood Negative /uL (Negative); Urine Clarity Clear (Clear); Urine Color Yellow (Yellow); Urine Protein, UAD Negative (Negative); Urine Specific Gravity 1.019 (1.001-1.035); Urine Squamous Epithelial Cell FEW /hpf (<5); Urine Urobilinogen 3 mg/dL (Negative); Urine WBC < 1 /HPF (0-5); Urine pH 6.5 (5.0-9.0)
[2024-11-08 14:34] VITALS: BP 135/48; PULSE 58; RESP 15; TEMP 98.5; O2SAT 96
[2024-11-08] MEDS ORDERED: CEPH250C PO (15:57)
--- NOTE | 2024-11-08 18:27 | ECG ---
[facility] Test Date: 2024-11-08 Test Time: 11:57:10 Pat Name: ALEX MENARD Department: ED Room: Gender: F [employer] Presser: MARCOS : 1940 Requested By: ABIGAIL MENDEZ Order Number: [id number] Reading MD: Nash Dockery Measurements Intervals [place] Rate: 57 P: 38 ND: 167 QRS: -4 QRSD: 98 T: 11 QT: 458 QTc: 446 Interpretive Statements Sinus rhythm Abnormal R-wave progression, early transition Electronically Signed On 11-13-2024 20:47:54 PDT by Nash Dockery Please click the below link to view image of tracing.
== END 2024-11-08 14:47 | disposition home or self-care (01) ==
LOC: EDBD 11:44 → ER 11:44
DX: S01.112A Laceration without foreign body of left eyelid and periocular area, initial encounter (principal); I10 Essential (primary) hypertension; Z79.82 Long term (current) use of aspirin; Z79.899 Other long term (current) drug therapy; Z86.73 Personal history of transient ischemic attack (TIA), and cerebral infarction without residual deficits; W22.8XXA Striking against or struck by other objects, initial encounter; Y93.89 Activity, other specified; Y92.89 Other specified places as the place of occurrence of the external cause; Y99.8 Other external cause status
CPT/HCPCS: 12013; 36415; 70450; 80048; 81001; 82947; 84484; 85025; 93005